=== PATIENT | female | born 1970 | race Caucasian/White ===

== ENCOUNTER → 2017-07-14 | Outpatient (CLI) | payer OTHER ==
--- NOTE | ~2017-07-14 | MY30 ---
[facility] of [facility] RADIOLOGY TEXT RESULTS PATIENT: FUNMI GREY LOCATION: [facility] : 66 UNIT #: [id number] AGE: [address]: FRANCISCO ALEX MD SEX: F ORDER DR: [id number] [address] [address] [id number] O MR#: [id number] Acc #: [id number] NAME: FUNMI GREY : 1970 SEX: F STUDY DATE/TIME: 07/14/2017 11:57 UNIT: [facility] ROOM: STUDY DESCRIPTION: MY SCREEN ANNA BILAT DIGITAL Attending Physician: Francisco Alex M.D. Referring Physician: Francisco Alex M.D. Ordering Physician: Francisco Alex M.D. Primary Care Physician: Lisa Beebe M.D. MEDICAL IMAGING REPORT This report is preliminary unless electronic signature is present. EXAM Digital screening mammogram 07/14/2017 HISTORY 47-year-old woman no risk elevation. Annual screen. COMPARISON Outside mammograms 12/09/2011, 02/02/2014 [facility]. FINDINGS Digital imaging of each breast was completed utilizing a two-view examination of each breast in craniocaudal and mediolateral-oblique projections. Review and interpretation of digital mammograms include a second review in conjunction with FDA-approved CAD device. There is a normal parenchymal presentation bilaterally consistent with the patient's age. There are no breast masses imaged and no parenchymal asymmetry is visualized. There are no suspicious microcalcifications and I see no focal architectural disturbance. IMPRESSION Negative screening digital mammogram. One-year followup recommended. Patients over the age of 40 are entered into a reminder system with target due date for the next mammogram. A result letter will also be sent to the patient. BIRADS: 1 Negative Dictated by... Mahesh Orellana M.D. [facility] RADIOLOGY TEXT RESULTS PATIENT: FUNMI GREY LOCATION: [facility] : 66 UNIT #: [id number] AGE: [address]: FRANCISCO ALEX MD SEX: F ORDER DR: THIS IS AN ELECTRONICALLY VERIFIED REPORT Mahesh Orellana M.D. at 07/23/2017 1:40 PM Lori TD: 07/21/2017 08:43 JOB #: [id number] MEDICAL IMAGING REPORT Page 1 of 1
== END | disposition home or self-care (01) ==
LOC: SMAM 11:03
DX: Z12.31 Encounter for screening mammogram for malignant neoplasm of breast (principal)
CPT/HCPCS: G0202